=== PATIENT | male | born 1950 | race Hispanic/Latino ===

== ENCOUNTER → 2019-03-11 | Outpatient (CLI) | payer MEDICARE | END | disposition home or self-care (01) | LOC: RAH 09:22 | PROVIDERS: ATTEND Internal Medicine | DX: K80.20 Calculus of gallbladder without cholecystitis without obstruction (principal); C61 Malignant neoplasm of prostate; N40.0 Benign prostatic hyperplasia without lower urinary tract symptoms; K57.90 Diverticulosis of intestine, part unspecified, without perforation or abscess without bleeding; Z85.46 Personal history of malignant neoplasm of prostate | CPT/HCPCS: 74176 ==

== ENCOUNTER → 2019-03-17 | Outpatient (CLI) | payer MEDICARE | END | disposition home or self-care (01) | LOC: RAH 07:44 | PROVIDERS: ATTEND Internal Medicine | DX: D69.6 Thrombocytopenia, unspecified (principal); R18.8 Other ascites | CPT/HCPCS: 76700 ==

== ENCOUNTER → 2020-08-03 | Outpatient (CLI) | payer MEDICARE, OTHER ==
[~2020-08-03] MED LIST: ALBUMIN (HUMAN) 25% 200 ML IV SCH
[2020-08-03 10:25] LABS: INR 1.23 (0.85-1.15); PARTIAL THROMBOPLASTIN TIME 28.1 SEC (26.3-35.5); PROTHROMBIN TIME 12.6 SEC (9.6-11.6)
[2020-08-03 12:59] LABS: APPEARANCE BODY FLUID CLOUDY (CLEAR); COLOR,BODY FLUID DARK YELLOW (LT YELLOW); SPECIMENTYPE,BODY FLUID ASCITES
[2020-08-03 13:00] LABS: BODY FLUID WBC 861 /cu. mm.; TOTAL VOLUME,BODY FLUID 11000 mL
[2020-08-03 13:01] LABS: BODY FLUID RBC 4650 /cu. mm.
[2020-08-03 13:39] LABS: BF LYMPHOCYTE 27 %; BF MONOCYTE 2 %
[2020-08-03 13:40] LABS: BF MESOTHELIAL 12 %; BF OTHER CELLS 6
== END | disposition home or self-care (01) ==
LOC: RAH 09:20
PROVIDERS: ATTEND Internal Medicine
DX: R18.8 Other ascites (principal); Z79.01 Long term (current) use of anticoagulants
CPT/HCPCS: 36415; 49083; 85610; 85730; 87071; 87205; 89051; A4215; P9046; 96365

== ENCOUNTER → 2020-08-21 | Outpatient (CLI) | payer OTHER | END | disposition home or self-care (01) | LOC: RAH 08:44 | PROVIDERS: ATTEND Internal Medicine Gastroenterology | DX: R18.8 Other ascites (principal); K80.80 Other cholelithiasis without obstruction; R16.1 Splenomegaly, not elsewhere classified; K74.60 Unspecified cirrhosis of liver | CPT/HCPCS: 76700; 93975 ==

== ENCOUNTER 2020-09-05 07:16 | Emergency (ER) | payer OTHER ==
[~2020-09-05] VITALS: Ht 177.8 cm; Wt 73.5 kg
[~2020-09-05 07:16] MED LIST changes: -ALBUMIN (HUMAN) 25% 200 ML IV SCH; +AMLO-257 PO; +DULO60CA64 PO; +FERR240T6 PO; +FINA5TAB41 PO; +GABA600T10 PO; +LACT10SO9 PO; +METF-444 PO; +OMEP40CA21 PO; +PRAM0.258 PO; +QUIN20TA26 PO; +RIFA550T PO; +ROSU40 PO; +SERT-440 PO; +SPIR50TA5 PO
[2020-09-05 08:33] VITALS: BP 107/56
[2020-09-05 08:44] LABS: BASOPHILS % (AUTO) 0.4 % (0.0-5.0); EOSINOPHILS % (AUTO) 2.3 % (0.0-8.0); HEMATOCRIT 27.8 % (42-54); LYMPHOCYTES % (AUTO) 16.3 % (21.0-51.0); MEAN CORPUSCULAR HEMOGLOBIN 31.6 pg (27.0-33.0); MEAN CORPUSCULAR HGB CONC 33.5 g/dL (32.0-36.0); MEAN CORPUSCULAR VOLUME 94.6 fL (79-99); MONOCYTES % (AUTO) 10.1 % (3.0-13.0); NEUTROPHILS % (AUTO) 70.6 % (40.0-77.0); PLATELET COUNT (AUTO) 126 K/uL (130-400); RED BLOOD CELL COUNT(AUTO) 2.94 MIL/uL (4.50-6.20); RED CELL DISTRIBUTION WIDTH 14.2 % (11.0-15.5); WHITE BLOOD COUNT (AUTO) 7.5 K/uL (4.8-10.8)
[2020-09-05 08:54] LABS: POTASSIUM 5.3 mmol/L (3.5-5.1)
[2020-09-05 08:55] LABS: INR 1.11 (0.85-1.15)
[2020-09-05 08:56] LABS: PARTIAL THROMBOPLASTIN TIME 30.9 SEC (26.3-35.5)
[2020-09-05 08:58] LABS: ALBUMIN 2.2 g/dL (3.5-5.0); BILIRUBIN,TOTAL 0.8 mg/dL (0.2-1.0); TOTAL PROTEIN, SERUM 7.1 g/dL (6.0-8.3)
[2020-09-05 10:25] VITALS: BP 108/52
[2020-09-05 11:57] VITALS: BP 100/57
[2020-09-05 13:16] VITALS: BP 100/56
[2020-09-05 13:21] LABS: APPEARANCE,URINE Clear (CLEAR); BILIRUBIN,URINE Negative (NEGATIVE); COLOR,URINE Yellow (YELLOW); GLUCOSE, URINE (UA) Negative (NEGATIVE); KETONES,URINE Negative (NEGATIVE); LEUKOCYTE ESTERASE ,URINE Negative (NEGATIVE); NITRATE,URINE Negative (NEGATIVE); OCCULT BLOOD,URINE Negative (NEGATIVE); PROTEIN,URINE Negative (NEGATIVE); UROBILINOGEN,URINE 0.2 mg/dL (0.2-1.0)
[2020-09-05] MEDS ORDERED: ALBUMIN (HUMAN) 25% 200 ML IV ONE (13:31)
[2020-09-05 14:59] VITALS: BP 96/48
== END 2020-09-05 17:35 | disposition home or self-care (01) ==
LOC: EDH 07:16
DX: R18.8 Other ascites (principal); K74.60 Unspecified cirrhosis of liver; I10 Essential (primary) hypertension; Z79.84 Long term (current) use of oral hypoglycemic drugs; Z79.899 Other long term (current) drug therapy; Z88.8 Allergy status to other drugs, medicaments and biological substances
CPT/HCPCS: 36415; 49083; 80053; 81003; 82140; 85025; 85610; 85730; 96365; 99285; A4215; P9046